=== PATIENT | female | born 1985 | race Caucasian/White ===

== ENCOUNTER 2017-05-21 20:55 | Emergency (ER) | payer SELFPAY ==
[~2017-05-21] VITALS: Ht 162.6 cm; Wt 72.0 kg
[2017-05-21 20:57] VITALS: BP 143/91; PULSE 80; RESP 16; TEMP 98.7; O2SAT 100
--- NOTE | 2017-05-21 22:12 | PD ---
HPI Chief Complaint: Abdominal Pain Time Seen by Provider: 22:08 Travel History International Travel<30 days: No Contact w/Intl Traveler<30days: No Traveled to known affect area: No History of Present Illness HPI 32-year-old female patient with history of left oophorectomy and right fallopian tube resection, presents to the ER today because of one day history of pelvic discomfort worse on the right side, worse with movement and urination. She denies any fevers, nausea, vomiting, or any other symptoms. Pain is currently stated to be an 8 out of 10. Modifying Factors: Worse with movement and urination Associated Signs & Symptoms: Pelvic pain, right pelvic pain, 8 out of 10 Risk Factors: None PFSH Past Medical History Medical History: Denies Significant Hx Tetanus Vaccination: Unknown Influenza Vaccination: No ?: Unknown LMP: 05-15-17 Past Surgical History Thoracic Surgery: Yes (LUMP REMOVED FROM "RIBS" ON LEFT SIDE) Other Surgery: Yes (LEFT OVARY REMOVAL ) Social History Alcohol Use: Yes (SOCIALLY) Tobacco Use: No Substance Use: No Allergies-Medications (Allergen,Severity, Reaction): Coded Allergies: No Known Drug Allergies (Verified Allergy, Unknown, 05/21/17) Reported Meds & Prescriptions Reported Meds & Active Scripts Active No Active Prescriptions or Reported Medications Review of Systems Except as stated in HPI: all other systems reviewed are Neg Physical Exam Narrative GENERAL: Well-developed young -[place] female patient currently mild distress. Awake and oriented 3. SKIN: Focused skin assessment warm/dry. HEAD: Atraumatic. Normocephalic. EYES: Pupils equal and round. No scleral icterus. No injection or drainage. ENT: No nasal bleeding or discharge. Mucous membranes pink and moist. NECK: Trachea midline. No JVD. CARDIOVASCULAR: Regular rate and rhythm. No murmur appreciated. RESPIRATORY: No accessory muscle use. Clear to auscultation. Breath sounds equal bilaterally. GASTROINTESTINAL: Abdomen soft, suprapubic tenderness without guarding or rebound, nondistended. Hepatic and splenic margins not palpable. GENITOURINARY: Normal external genitalia without lesions or erythema. Vaginal vault without blood, Small amount of whitish greenish drainage. Cervical os was closed without drainage. No cervical motion tenderness. Uterus nontender and nonenlarged. Bilateral adnexa nontender without masses., , MUSCULOSKELETAL: No obvious deformities. No clubbing. No cyanosis. No edema. NEUROLOGICAL: Awake and alert. No obvious cranial nerve deficits. Motor grossly within normal limits. Normal speech. PSYCHIATRIC: Appropriate mood and affect; insight and judgment normal. Data Data Last Documented VS Vital Signs Date Time Temp Pulse Resp B/P (MAP) Pulse Ox O2 Delivery O2 Flow Rate FiO2 05/21/17 20:57 98.7 80 16 143/91 (108) 100 Room Air Orders Orders Urinalysis - C+S If Indicated (05/21/17 22:03) Iv Access Insert/Monitor (05/21/17 22:03) Ecg Monitoring (05/21/17 22:03) Oximetry (05/21/17 22:03) Sodium Chloride 0.9% Flush (Ns Flush) (05/21/17 22:15) Ed Urine Pregnancytest Poc (05/21/17 22:03) Complete Blood Count With Diff (05/21/17 22:09) Comprehensive Metabolic Panel (05/21/17 22:09) Ketorolac Inj (Toradol Inj) (05/21/17 22:15) Urine Culture (05/21/17 22:00) Ct Abd/Pel W Iv Contrast(Rout) (05/21/17 22:12) Gc And Chlamydia Pcr (05/22/17 01:07) Wet Prep Profile (05/22/17 01:07) Labs Laboratory Tests Test 05/21/17 22:00 White Blood Count 8.0 TH/MM3 Red Blood Count 4.49 MIL/MM3 Hemoglobin 13.8 GM/DL Hematocrit 41.6 % Mean Corpuscular Volume 92.7 FL Mean Corpuscular Hemoglobin 30.8 PG Mean Corpuscular Hemoglobin Concent 33.2 % Red Cell Distribution Width 13.4 % Platelet Count 253 TH/MM3 Mean Platelet Volume 9.2 FL Neutrophils (%) (Auto) 49.9 % Lymphocytes (%) (Auto) 39.9 % Monocytes (%) (Auto) 6.8 % Eosinophils (%) (Auto) 2.9 % Basophils (%) (Auto) 0.5 % Neutrophils # (Auto) 4.0 TH/MM3 Lymphocytes # (Auto) 3.2 TH/MM3 Monocytes # (Auto) 0.5 TH/MM3 Eosinophils # (Auto) 0.2 TH/MM3 Basophils # (Auto) 0.0 TH/MM3 CBC Comment DIFF FINAL Differential Comment Urine Color LIGHT-YELLOW Urine Turbidity HAZY Urine pH 6.5 Urine Specific [place] 1.006 Urine Protein NEG mg/dL Urine Glucose (UA) NEG mg/dL Urine Ketones NEG mg/dL Urine Occult Blood TRACE Urine Nitrite NEG Urine Bilirubin NEG Urine Urobilinogen LESS THAN 2.0 MG/DL Urine Leukocyte Esterase MOD Urine RBC 0-3 /hpf Urine WBC 3-5 /hpf Urine WBC Clumps RARE Urine Squamous Epithelial Cells 6-8 /hpf Urine Bacteria MOD /hpf Urine Trichomonas MOD Microscopic Urinalysis Comment CULTURE INDICATED Blood Urea Nitrogen 10 MG/DL Creatinine 0.89 MG/DL Random Glucose 93 MG/DL Total Protein 8.2 GM/DL Albumin 3.8 GM/DL Calcium Level 9.2 MG/DL Alkaline Phosphatase 77 U/L Aspartate Amino Transf (AST/SGOT) 29 U/L Alanine Aminotransferase (ALT/SGPT) 26 U/L Total Bilirubin 0.3 MG/DL Sodium Level 138 MEQ/L Potassium Level 4.0 MEQ/L Chloride Level 101 MEQ/L Carbon Dioxide Level 27.7 MEQ/L Anion Gap 9 MEQ/L Estimat Glomerular Filtration Rate 74 ML/MIN [facility] Medical Decision Making Medical Screen Exam Complete: Yes Emergency Medical Condition: Yes Medical Record Reviewed: Yes Interpretation(s) Laboratory Tests Test 05/21/17 22:00 Urine Turbidity HAZY (CLEAR) Urine Occult Blood TRACE (NEG) Urine Leukocyte Esterase MOD (NEG) Urine WBC Clumps RARE (NONE) Urine Squamous Epithelial Cells 6-8 /hpf (0-5) Urine Bacteria MOD /hpf (NONE) Urine Trichomonas MOD (NONE) Estimat Glomerular Filtration Rate 74 ML/MIN (>89) Last 24 hours Impressions Abdomen/Pelvis CT 05/21/172 Signed Impressions: Service Date/Time: Monday, May 22, 2017 00:12 - CONCLUSION: Probable right ovarian cyst. Otherwise negative CT abdomen/pelvis with contrast. Leroy Santos MD Differential Diagnosis Suprapubic pain, right pelvic pain: UTI versus pyelonephritis versus renal colic versus appendicitis Narrative Course Lab work did not show significant leukocytosis. Her UA does show UTI and Trichomonas. Pelvic exam was done and was fairly unremarkable. Her adnexa is nontender to palpation. CAT scan didn't show significant signs of acute intra- abdominal processes. She does have a right ovarian cyst. At this point, my plan would be to release her with treatment for Trichomonas and UTI. Follow-up with primary care physician and [employer]. Return for worsening symptoms as needed. The plan has been discussed with her and she states understanding. In addition, have talked her about safe sex until her partner can be treated for Trichomonas as well. Diagnosis Primary Impression: Trichomonas vaginitis Additional Impressions: Right ovarian cyst UTI (urinary tract infection) Med/Other Pt SpecificInfo: Prescription(s) given Scripts Nitrofurantoin Monohydrate Macrocrystals (Macrobid) 100 Mg Cap 100 MG PO BID for Infection for 7 Days, #14 CAP 0 Refills Prov: Geoff Rouse MD 05/22/17 Metronidazole (Flagyl) 500 Mg Tab 500 MG PO TID for Infection for 7 Days, TAB 0 Refills Prov: Geoff Rouse MD 05/22/17 Disposition: 01 DISCHARGE HOME Condition: Stable Geoff Rouse MD May 21, 2017 22:12
[2017-05-21] MEDS ORDERED: KETOROLAC TROMETHAMINE 30 MG/ML (IVP) VIAL IV PUSH ONE (22:15)
[2017-05-21] MEDS ORDERED: SODIUM CHLORIDE 0.9% FLUSH 10 ML FLUSH IV FLUSH PRN (22:15)
[2017-05-21 22:26] LABS: BASOPHIL % 0.5 % (0.0-2.0); EOSINOPHIL # 0.2 TH/MM3 (0-0.4); EOSINOPHIL % 2.9 % (0.0-4.0); HEMATOCRIT 41.6 % (35.0-46.0); HEMO FLAGS DIFF FINAL; LYMPH % 39.9 % (9.0-44.0); LYMPHOCYTE # 3.2 TH/MM3 (1.0-4.8); MEAN CELL VOLUME 92.7 FL (80.0-100.0); MEAN CORPUSCULAR HEMOGLOBIN 30.8 PG (27.0-34.0); MEAN CORPUSCULAR HGB CONC 33.2 % (32.0-36.0); MONO % 6.8 % (0.0-8.0); NEUT % 49.9 % (16.0-70.0); PLATELET COUNT 253 TH/MM3 (150-450); RED BLOOD COUNT 4.49 MIL/MM3 (4.00-5.30); RED CELL DISTRIBUTION WIDTH 13.4 % (11.6-17.2)
[2017-05-21 22:36] LABS: BLOOD, URINE TRACE (NEG); GLUCOSE,URINE NEG (NEG); KETONE, URINE NEG (NEG); NITRITE,URINE NEG (NEG); PH, URINE 6.5 (5.0-8.5); URINE COLOR LIGHT-YELLOW (YELLW/STRAW)
[2017-05-21 22:42] LABS: ALKALINE PHOSPHATASE 77 U/L (45-117); TOTAL BILIRUBIN ADULT 0.3 MG/DL (0.2-1.0)
[2017-05-21 22:48] LABS: BACTERIA, URINE MOD /hpf; COMMENT (UR) CULTURE INDICATED; CULTURE IF INDICATED CULTURE INDICATED; RBC, URINE 0-3 /hpf (0-3)
[2017-05-21 23:19] LABS: ALT (GPT) 26 U/L (10-53); ANION GAP 9 MEQ/L (5-15); AST (GOT) 29 U/L (15-37); BICARBONATE 27.7 MEQ/L (21.0-32.0); BLOOD UREA NITROGEN 10 MG/DL (7-18); CHLORIDE 101 MEQ/L (98-107); GLOMERULAR FILTRATION RATE 74 ML/MIN (>89); SODIUM (NA) 138 MEQ/L (136-145)
[2017-05-22] MEDS ORDERED: IOHEXOL 350 MG/ML 10 ML VIAL (for RAD DIAG) IVCONTRAST ONE (00:12)
--- NOTE | 2017-05-22 01:01 | RADRPT ---
EXAM DATE/TIME: 05/22/2017 00:12 [place] COMPARISON: No previous studies available for comparison. INDICATIONS : Abdominal pain. IV CONTRAST: 97 cc Omnipaque 350 (iohexol) IV ORAL CONTRAST: No oral contrast ingested. RADIATION DOSE: 6.64 CTDIvol (mGy) MEDICAL HISTORY : None SURGICAL HISTORY : Left oopherectomy ENCOUNTER: Initial ACUITY: 1 day PAIN SCALE: 6/10 LOCATION: abdomen TECHNIQUE: Volumetric scanning of the abdomen and pelvis was performed. Using automated exposure control and ad justment of the mA and/or kV according to patient size, radiation dose was kept as low as reasonably achievable to obtain optimal diagnostic quality images. DICOM format image data is available electro nically for review and comparison. FINDINGS: LOWER LUNGS: The visualized lower lungs are clear. LIVER: Homogeneous density without lesion. There is no dilation of the biliary tree. No calcified gallston es. SPLEEN: Normal size without lesion. PANCREAS: Within normal limits. KIDNEYS: Normal in size and shape. There is no mass, stone or hydronephrosis. ADRENAL GLANDS: Within normal limits. VASCULAR: There is no aortic aneurysm. BOWEL/MESENTERY: No dilated loops of small or large bowel. ABDOMINAL WALL: Within normal limits. RETROPERITONEUM: There is no lymphadenopathy. BLADDER: No wall thickening or mass. REPRODUCTIVE: Normal-sized uterus. 2.2 cm round low density area in the region of the right ovary, located anterio r to the uterus, probably representing ovarian cysts. No evidence of free fluid. Mild amount of sto ol the right colon. The appendix is not identified, but no induration about the cecum. INGUINAL: There is no lymphadenopathy or hernia. MUSCULOSKELETAL: Within normal limits for patient age. CONCLUSION: Probable right ovarian cyst. Otherwise negative CT abdomen/pelvis with contrast. Leroy Santos MD on May 22, 2017 at 0:56 Board Certified Radiologist. This report was verified electronically.
[2017-05-22] MEDS ORDERED: METR-1 PO (01:21)
[2017-05-22] MEDS ORDERED: MACR100C2 PO (01:21)
[2017-05-22 04:53] LABS: CHLAMYDIA PCR NOT DETECTED (NOT DETECT); NEISSERIA PCR NOT DETECTED (NOT DETECT)
== END 2017-05-22 01:59 | disposition home or self-care (01) ==
LOC: NEPE 20:55
DX: A59.01 Trichomonal vulvovaginitis (principal); N83.201 Unspecified ovarian cyst, right side; N39.0 Urinary tract infection, site not specified; B96.89 Other specified bacterial agents as the cause of diseases classified elsewhere
CPT/HCPCS: 74177; 80053; 81001; 84703; 85025; 87086; 87210; 87491; 87591; 96374; 99285; J1885; Q9967